=== PATIENT | female | born 1965 | race African-American/Black ===

== ENCOUNTER 2016-06-26 07:00 | Inpatient (IN) | payer OTHER ==
[~2016-06-26] VITALS: Ht 160 cm; Wt 83.0 kg
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
[2016-08-28] MEDS ORDERED: TYLENOL PM EX-1 EACH PO (15:55)
[2016-08-28] MEDS ORDERED: DAFLON PO (15:55)
--- NOTE | 2016-08-29 18:04 | Operative Report ---
Operative/Inv Procedure Report Surgery Date: 08/29/16 Name of Procedure: Cervical anterior discectomy and fusion C4 5 with interdiscal cage fusion and autologous graft with anterior plate C4 5. Harvesting of morselized bone graft right anterior iliac crest. Reconstruction of donor site with Master graft. Use of fluoroscopy. Pre-Operative Diagnosis: Disc herniation C4 5 Post-Operative Diagnosis: Same Estimated Blood Loss: less than 50ml Surgeon/Discharging Machine Operator: LUIS M NUNEZ,STEPHANE IRBY Anesthesia: general endotracheal tube Monitors: Nerve monitor Operative/Procedure Note Note: After adequate general anesthesia was achieved the patient was placed in the supine position with the head turned to the left and the shoulders taped to the side. Right side of the neck and right anterior iliac crest were sterilely prepped and draped. An incision was made in line with the skin crease carried sharply through the platysma. Blunt dissection was carried medial to the neurovascular bundle lateral to the visceral structures and a metallic object was placed in the disc space. Fluoroscopy showed appropriate level of surgery. Deep retractors were gently placed. A sharp venotomy was created and the disc at C4 5 and the discectomy was performed with the disc curettes and rongeurs. An extremely large herniation compressing the exiting C5 nerve root on the left side. There is marked erythematous regions of the nerve root and an hourglass constriction due to the disc compression which was relieved by the decompression. The endplates were decorticated with the high-speed bur and the trials were used to select the appropriate size cage. An incision was made over the right anterior iliac crest a subperiosteal dissection was carried medial and lateral to the crest. The oscillating saw and curet was used to remove a corticocancellous graft. The wound was irrigated Master graft was placed in the defect. A closure of the fascia was performed with absorbable suture with nylon and the skin. The cage was packed with cancellus bone. Was tamped into position and checked by fluoroscopy. An anterior plate was applied was undigested screws were locked and there was excellent purchase in all 4 screws. Construct was checked in AP and lateral plane and found to be appropriate. The wound was checked and hemostasis was achieved. The wound was copiously irrigated and then closed with absorbable suture in the platysma and a subcuticular stitch with nylon. After placement of sterile dressings a cervical collar was applied the patient was taken to the recovery room stretcher.
--- NOTE | 2016-08-29 19:41 | Patient Discharge Instructions ---
Acute Coronary Syndrome Inclusion Criteria At DC or during hospital stay patient has or had the following: ACS DIAGNOSIS No Discharge Core Measures Meds if any: Prescribed or Continued at Discharge Meds if any: NOT Prescribed or Continued at Discharge Congestive Heart Failure Inclusion Criteria At DC or during hospital stay patient has or had the following: CHF DIAGNOSIS No Discharge Core Measures Meds if any: Prescribed or Continued at Discharge Meds if any: NOT Prescribed or Continued at Discharge Cerebrovascular accident Inclusion Criteria At DC or during hospital stay patient has or had the following: CVA/TIA Diagnosis No Discharge Core Measures Meds if any: Prescribed or Continued at Discharge Meds if any: NOT Prescribed or Continued at Discharge Venous thromboembolism Inclusion Criteria VTE Diagnosis No VTE Type NONE VTE Confirmed by (Test) NONE Discharge Core Measures - Per Current guidelines, there needs to be overlap - treatment for the first 5 days of Warfarin therapy. - If discharged on Warfarin prior to 5 days of - overlap therapy, the patient will need to be - assessed for post discharge needs including - *Post discharge parental anticoagulation - *Warfarin and/or parental anticoagulation education - *Follow up date to check INR post discharge At least 5 days overlap therapy as Inpatient No Meds if any: Prescribed or Continued at Discharge Note: Overlap Therapy is Warfarin and Anticoagulant Meds if any: NOT Prescribed or Continued at Discharge
[2016-08-29] MEDS ORDERED: TYLENOL325 M1 PO (19:42)
[2016-08-29] MEDS ORDERED: CALCIUM CARBON500 M2 PO (19:43)
[2016-08-29] MEDS ORDERED: BISAC-EVAC10 M1 PR (19:43)
[2016-08-29] MEDS ORDERED: MILK OF MA400 MG/52 PO (19:44)
[2016-08-29] MEDS ORDERED: VITAMIN D31000 UNI2 PO (19:44)
[2016-08-29] MEDS ORDERED: DOCUSATE SODIU100 M3 PO (19:44)
[2016-08-29] MEDS ORDERED: HYDROMORPHONE HC2 M1 PO (19:45)
[2016-08-29] MEDS ORDERED: ONE DAILY MULT1 EAC2 PO (19:45)
[2016-08-29 20:16] VITALS: BP 122/74
--- NOTE | 2016-08-29 22:29 | PN- Orthopedic ---
Subjective Subjective: Post op check: Patient received on general surgical floor. Is presently without complaints. Denies chest pain, shortness of breath and difficulty breathing. Denies nausea and vomitting. Denies difficulty swallowing. Denies numbness and tingling to bilateral upper extremities. Objective Vital Signs and I&Os Vital Signs Date Time Temp Pulse Resp B/P Pulse O2 O2 Flow FiO2 Ox Delivery Rate 08/29 2015 93 Nasal 2.0L Cannula 08/29 2015 97.2 68 16 122/74 93 Nasal 2.0L Cannula Intake & Output 08/29 0808/29 0000 08/28 0808/28 0000 Intake Total Output Total Balance Patient 183 lb Weight Physical Exam: General: Alert and oriented x3, no acute distress Cardiac: RRR, s1s2 Pulm: CTA bilaterally Abdomen: Non-tender, non-distended Extremities: Moves all extremities, distal sensations intact. Motor 5/5 bilateral upper extremity grasp. Skin warm and well perfused. Bilateral calves soft and non-tender Surgical site: Anterior cervical fusion site, dressing dry and intact. Ice and soft collar in place. ICBG site dressing dry and intact. Assessment/Plan Assessment/Plan This is a 50 year old female, POD 0, s/p ACDF c4-5 for cervical myelopathy. PMH significant for HANNAH and venous insufficiency. -Continue current pain regimen -OOB with PT in am -Diet as tolerated -IV fluids until adequate po -ABX ppx for 24 hours, clindamycin -F/U am labs -Anticipate d/c to home tomorrow Core Measures/Miscellaneous Venous Thromboembolism VTE Risk Factors: Age > 40 VTE Contraindications: No Contraindications VTE Prophylaxis Ordered Inpt: Mech & Pharm VTE Diagnosis: No Beta Chiara Is Beta Chiara a Home Med? No Antibiotics Is Patient on Antibiotics? Yes If Yes: prophylaxis
--- NOTE | 2016-08-29 22:54 | NUR ---
LATE ENTRY: PATIENT ARRIVED TO FLOOR AT 195 FROM PACU, S/P ACD WITH FUSION, C4-C5, WITH R ILIAC CREST VS 97.2 68 16 122/74 93% 2L; NO C/O PAIN OR NAUSEA A&O, LCTA, +BS, INDEPENDENT-AMBULATED TO BATHROOM FROM STRETCHER, VOIDING ON HER OWN. DSG TO ANTERIOR NECK, CDI, WITH SOFT COLLAR IN PLACE WITH ICE PACK. DSG TO R HIP/ILIAC CREST CDI. +CMS, +PEDAL PULSES IV #22 TO LH WITH LR @ 100 ML/HR RUNNING; #20 TO LW HEP LOCKED. ALPS & TEDS STOCKINGS ON. ORIENTED TO ROOM AND CALL MENDEZ. CONTINUE TO MONITOR.
[2016-08-30 00:12] VITALS: BP 138/82
--- NOTE | 2016-08-30 07:49 | NUR ---
Physical therapy: Orders for PT eval and treat received, chart reviewed. Approached patient for PT eval. Patient reports "I've already been up and walking". Patient proceeded to independently get OOB and ambulate out into the hallway without device, independently. Then performed sit to supine independently. No skilled PT required at this time and PT will not be following patient. Thank you.
[2016-08-30 08:44] VITALS: BP 126/68
--- NOTE | 2016-08-30 09:05 | PN- Orthopedic ---
Subjective Subjective: POD #1 s/p ACDF C4-5 with ICBG. Ambulating around room upon interview. Denies further pain to neck or right hip. No complaints, although hungry for breakfast. Denies CP/SOB, N/V, F/C. Objective Vital Signs and I&Os Vital Signs Date Time Temp Pulse Resp B/P Pulse O2 O2 Flow FiO2 Ox Delivery Rate 08/30 0844 98.1 90 18 126/68 93 Nasal 2.0L Cannula 08/30 0012 98.4 83 18 138/82 94 Nasal 2.0L Cannula 08/30 0000 94 Nasal 2.0L Cannula 08/29 2015 93 Nasal 2.0L Cannula 08/29 2015 97.2 68 16 122/74 93 Nasal 2.0L Cannula Intake & Output 08/30 1600 08/30 0800 08/30 0000 08/29 1600 08/29 0800 08/29 0000 Intake Total 850 2740 Output Total 900 800 Balance -50 1940 Intake, IV 800 2500 Intake, Oral 50 240 Output, Urine 900 800 Patient 183 lb Weight Physical Exam: Gen: AAOx3 in NAD HEENT: soft collar removed. Incision to right neck C/D/I. No surrounding soft tissue mass to suggest hematoma. Cor: S1+S2+ Lungs: CTA dale Abd: soft, NT, ND, +BS x4 Ext: no edema or calf tenderness to dale lower extremities. Right hip dressing C /D/I. Upper extremities with palpable radial pulses. Hands warm. Able to lift arms above head. Current Medications: Current Medications Sig/Johan Start time Last Medication Dose Route Stop Time Status Admin Acetaminophen 650 MG Q4P PRN 08/29 1929 AC PO Acetaminophen 1,000 MG .STK-MED ONE 08/29 1444 DC IV 08/29 1445 Bisacodyl 10 MG DAILY NEEDED PRN 08/29 1929 AC GA Calcium 600 MG BID 08/290 AC 08/29 PO 2215 Cholecalciferol 1,000 IU DAILY 08/30 1000 AC PO Clindamycin 600 MG IQ8 08/30 0000 AC 08/30 Dextrose/Water 50 ML IV 08/31 0029 0817 Clindamycin 600 MG ONCE 08/29 0000 DC Dextrose/Water 50 ML IV 08/29 2359 Dexamethasone 8 MG .STK-MED ONE 08/29 1445 DC IM 08/29 1446 Docusate Sodium 100 MG BID 08/29 2199 AC 08/29 PO 2215 Fentanyl Citrate 250 MCG .STK-MED ONE 08/29 1444 DC IM 08/29 1445 Hydromorphone HCl 2 MG Q4P PRN 08/29 194 AC 08/30 PO 0023 Hydromorphone HCl 4 MG Q4 HRS NEEDED PRN 08/29 1944 AC PO Hydromorphone HCl 2 MG .STK-MED ONE 08/29 1443 DC IM 08/29 1444 Lactated Ringer's 1,000 ML Q10H 08/29 194 DC 08/30 IV 0520 Magnesium Hydroxide 30 ML AT BEDTIME PRN 08/29 194 AC PO Midazolam HCl 4 MG .STK-MED ONE 08/29 1444 DC IM 08/29 1445 Morphine Sulfate 2 MG Q3P PRN 08/29 193 AC IV Multivitamins 1 TAB DAILY 08/30 1000 AC PO Ondansetron HCl 4 MG Q6P PRN 08/29 1929 AC IV Scopolamine HBr 1 PAT .STK-MED ONE 08/29 1445 DC TOP 08/29 1446 Trimethobenzamide HCl 200 MG Q6P PRN 08/29 1930 AC IM Assessment/Plan Assessment/Plan A: POD #1 s/p ACDF C4-5 with ICBG; AVSS. Plan: D/C home today. Core Measures/Miscellaneous Venous Thromboembolism VTE Risk Factors: Age > 40 VTE Contraindications: No Contraindications VTE Prophylaxis Ordered Inpt: Mech & Pharm VTE Diagnosis: No Beta Chiara Is Beta Chiara a Home Med? No Antibiotics Is Patient on Antibiotics? Yes If Yes: prophylaxis
--- NOTE | 2016-08-30 09:07 | Surg Short-stay <48hrs Dis Sum ---
Visit Information Visit Dates Admission Date: 08/29/16 Discharge Date: 08/30/16 Surgical Short Stay DC Summary Admission Diagnosis: cervical radiculopathy Final Diagnosis: same Procedure(s): ACDF C4-5 with iliac crest bone graft Summary/Significant Findings: Mrs. Kidd was taken to the OR on 08/29/16 and underwent an ACDF C4-5 with ICBG. She did well intraoperatively, and was transferred to the recovery room in stable condition. She ultimately was transferred to the surgical floor. She tolerated a clear liquid diet overnight and she was able to void spontaneously. Her pain was well controlled. On POD #1, she tolerated a regular diet. She was stable for discharge home with outpatient follow up as scheduled. Condition at Discharge: stable Discharge Disposition: home or self care Discharge instructions provided to patient/family: Yes Post discharge follow-up plan: Dr. Sanchez patient to make appointment per Dr. Sanchez instructions
[2016-08-30] MEDS ORDERED: MELOXICAM15 M1 PO (11:17)
--- NOTE | 2016-08-30 15:28 | RADIOLOGY REPORT ---
EXAMINATION: XR CERVICAL SPINE CLINICAL INFORMATION: Cervical fusion. C4-C5 fusion. COMPARISON: None TECHNIQUE: Imaging assistance was provided in the operating room during a cervical spine procedure. 10 images obtained with the portable image intensifier are submitted. FLUOROSCOPY TIME: 0.1 minutes FINDINGS: Multiple images obtained demonstrate the patient is intubated. Metallic densities project over the ventral mid cervical spine and soft tissues; for localization purposes metallic instruments project at the ventral aspect of the C4-C5 disc. Subsequent images demonstrate findings of discectomy and interbody fusion at C4-C5 with a ventral plate. Detail limited. IMPRESSION: Imaging assistance provided in the operating room during a cervical procedure. Images obtained for localization purposes. Images demonstrate sequential discectomy, interbody fusion and instrumentation at C4-C5.
== END 2016-08-30 12:20 | DRG 473 ==
LOC: ENRESERVDT → ENRESERVTM → SDA 07:00 → ENPENDDIS 08-29 01:24 → SDA 08-29 01:24 → 2NB 08-29 19:56
PROVIDERS: ADMIT Orthopaedic Surgery Orthopaedic Surgery of the Spine
PROC: 0RT30ZZ Resection of Cervical Vertebral Disc, Open Approach (ICD-10-PCS; principal; 2016-08-29)
PROC: 0RG10A0 Fusion of Cervical Vertebral Joint with Interbody Fusion Device, Anterior Approach, Anterior Column, Open Approach (ICD-10-PCS; 2016-08-29)
PROC: 0QB20ZZ Excision of Right Pelvic Bone, Open Approach (ICD-10-PCS; 2016-08-29)
DX: M50.221 Other cervical disc displacement at C4-C5 level (principal)
CPT/HCPCS: 72040; 88304; J0131; J1100; J2405; J3250; J3490; J7120

== ENCOUNTER 2016-12-12 07:00 | Inpatient (IN) | payer OTHER ==
--- NOTE | 2016-12-09 14:35 | History & Physical Pre-Op ---
General Information and HPI MD Statement: I have seen and personally examined SONYA BARRAZA and documented this H&P. The patient is a 51 year old F who presented with a patient stated chief complaint of severe neck pain radiating to right arm. Source of Information: patient, old records Exam Limitations: no limitations History of Present Illness: Sonya is here complaining of severe neck pain radiating to her right arm after her right knee gave way recently and she fell. She experienced whiplash due to the fall. Since Sonya's recent fall, her symptoms have progressively worsened. Her x-rays at the time of the fall showed subsidence of her intradiscal cage, pulling out of the screws at C4, and loosening of the plate. The cage appears to be slightly retropulsed towards the cord. The subadjacent disc space has completely collapsed due to compression from the problem above. Sonya is status post anterior cervical decompression and fusion at C4-5 from August,. She was doing quite well until this incident. Because of Sonya's progressively worsening symptoms and x-ray findings, she is in need for an urgent removal of hardware, decompression and fusion of C4-5 and C5-6 with anterior fixation. Due to the kyphosis and failure of the implant, she also needs a posterior cervical decompression and fusion C4-C6 with wire and autologous bone graft. Sonya understands the risks of surgery as well as watchful waiting and wants nothing more to do with nonsurgical treatment. She has been scheduled for an anterior/ posterior cervical decompression and fusion C4-C6 with instrumentation and iliac crest bone grafting on December 12, 2016. Allergies/Medications Allergies: Coded Allergies: Penicillins (Intermediate, rash 08/20/16) codeine (Intermediate, dizziness 08/20/16) latex (Intermediate, itching 08/20/16) Home Med list Acetaminophen/Diphenhydramine (Tylenol Pm Ex-Strength Caplet) 500 MG-25 MG TABLET SLEEP (Reported) [DAFLON] 500 MG BOTTLE 1 TAB PO BID VENOUS INSUFFICIENCY (Reported) Gabapentin (Neurontin) 300 MG CAPSULE 1 CAP PO TID PAIN (Reported) 1 TAB AM .... 1 TAB NOON.... 2 TABS PM Methocarbamol (Robaxin-750) 750 MG TABLET 2 TAB PO 4X PER DAY SPASM (Reported ) Multivitamin (One Daily Multivitamin) 1 EACH TABLET 1 TAB PO DAILY GENERAL HEALTH Compliance With Home Meds: GOOD Past History Medical History Neurological: NONE EENT: NONE Cardiovascular: NONE Respiratory: obstructive sleep apnea, SOB-unexplained Gastrointestinal: NONE Hepatic: NONE Renal: NONE Musculoskeletal: chronic back pain, disk herniation, degen joint disease, falls, osteoarthritis (right knee), sciatica, spinal stenosis, DDD lumbar Psychiatric: anxiety Endocrine: NONE Blood Disorders: DVT (possible), venous insufficiency Cancer(s): NONE SUPERVISOR CLAIMS/Reproductive: miscarriage, amenorrhea History of MRSA: No History of VRE: No History of CDIFF: No Surgical History Pertinent Surgical History: arthroscopy (right knee 2015), tubal ligation, s/p abdominoplasty 2004 s/p T & A S/p D & C s/p breast reduction 2005 s/p nasal surgery s/p right shoulder arthroscopy 2015, s/p ACDF C4-5 with Instrumentation/ ICBG 08/2016 Past Family/Social History Family History Relations & Conditions if any MOTHER (Diabetes MellitusBreast Cancer). FATHER (OsteoarthritisCancer). . Psychosocial History Where Do You Live? 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 Urinalysis shows bacteria with a WBC of 12.8. IV Cipro given preop and antibiotics to be given postop. Review of Systems Genitourinary: Reports: dysuria. Exam & Diagnostic Data Physical Exam: Weight: 192 lbs. Height: 5'3" Physical Exam General Appearance Alert, Oriented X3, Cooperative, No Acute Distress Skin No Rashes, No Breakdown, No Significant Lesion HEENT Atraumatic, PERRLA, EOMI, Mucous Membr. moist/pink Neck Supple, No JVD, No thryomegaly, +2 Carotid Pulse wo Bruit Lymphatic Cervical nl Cardiovascular Regular Rate, Normal S1, Normal S2, No Murmurs Lungs Clear to Auscultation, Normal Air Movement Abdomen Normal Bowel Sounds, Soft, No Tenderness, No Masses Neurological Normal Tone, Sensation Intact, + right biceps and brachioradialis reflex, weak +4/5 right bicep/tricep strength Extremities No Clubbing, No Cyanosis, No Edema, Normal Pulses Vascular Normal Pulses Last 24 Hrs of Labs/Neil: Laboratory Tests 12/17/16 0959: Urine Test NEGATIVE UA: + bacteria WBC: 12.8 Medication List Current Psychiatric Med(s): Tylenol prn Daflon 500mg daily Neurontin daily Ativan 0.5mg prn anxiety/spasms Assessment/Plan Assessment/Plan: Assessment: 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 Plan: Sonya is scheduled for a revision anterior/posterior cervical decompression/fusion C4-C6 with instrumentation and iliac crest bone grafting on December 12, 2016. We discussed the procedure in full detail as well as the pre-and postoperative course, follow-up care, and anticipated recovery. We also discussed the do's and don'ts and discharge instructions. We discussed the risks, alternatives, and benefits of the surgery versus watchful waiting. The risks discussed did not exclude , infection, paralysis, Bleeding, continued pain, failure of the surgery, need for future surgery, DVT, vascular injury, CSF leak, dysphagia, and hoarseness, etc. Given these risks, she still wishes to proceed. Any changes in this patient's plan is based on this patient's outpatient clinical presentation. As Ranked By This Provider Problem List: 1. Venous insufficiency 2. Osteoarthritis 3. UTI (urinary tract infection) Copies To: LUIS M NUNEZ,STEPHANE Attending MD Review Statement Attending Statement Attending MD Statement: examined this patient, discuss w/resident/PA/OVEN UNLOADER, agreed w/resident/PA/OVEN UNLOADER, reviewed images
[~2016-12-12] VITALS: Ht 160 cm; Wt 87.5 kg
[~2016-12-12 07:00] MED LIST: BISAC-EVAC10 M1 PR; CALCIUM CARBON500 M2 PO; DAFLON PO; DOCUSATE SODIU100 M3 PO; HYDROMORPHONE HC2 M1 PO; MELOXICAM15 M1 PO; MILK OF MA400 MG/52 PO; ONE DAILY MULT1 EAC2 PO; TYLENOL PM EX-1 EACH PO; TYLENOL325 M1 PO; VITAMIN D31000 UNI2 PO
[2016-12-16] MEDS ORDERED: NEURONTIN300 M1 PO (13:54)
[2016-12-16] MEDS ORDERED: ROBAXIN-750750 M1 PO (13:54)
[2016-12-16] MEDS ORDERED: TYLENOL PM EX-1 EACH (13:55)
--- NOTE | 2016-12-17 15:52 | Operative Report ---
Operative/Inv Procedure Report Surgery Date: 12/17/16 Name of Procedure: Anterior cervical inspection of fusion mass. Removal of cervical plate and interdiscal cage C4 5 anterior decompression and fusion C4 5 C5 6 interdiscal plate implantation C4 5 C5 6 with autologous iliac crest bone graft for interbody fusion. Anterior plate fixation C4 5 6 neural lysis right C5 nerve root and C6 nerve root. Harvesting of morselized bone left anterior iliac crest. Reconstruction of iliac crest site with Master graft implant. Use of fluoroscopy. Pre-Operative Diagnosis: Nonunion C4 5 degenerative disc disease C5 6 Post-Operative Diagnosis: Same additional diagnosis loose hardware. Estimated Blood Loss: 50ml to 100ml Surgeon/Silviculture Professor: LUIS M NUNEZ,STEPHANE IRBY Anesthesia: general endotracheal tube Operative/Procedure Note Note: After adequate general anesthesia was achieved the patient was placed in the supine position with the head turned to the left and the shoulders taped to the side. The right side of the neck and left anterior iliac crest were sterilely prepped and draped. The previous incision was excised sharply in the cervical spine and the dissection was carried medial to the neurovascular bundle lateral to the visceral structures. Care was taken throughout the case to avoid any traction on the recurrent laryngeal nerve. Care was also taken to avoid retraction on the esophagus. The deep retractors were gently placed the plate was obviously loose and easily removed all 4 screws were loose. The cage was examined and found to be loose there was a nonunion cage was easily removed. There is severe ball Of scar tissue which was debrided and a decompression was performed neural lysis of the entrapped right C5 nerve root no undue tension was placed in the nerve root in the neural lysis was done under loupe magnification extremely gently. A sharp annulotomy was created and the extremely degenerative subjacent C5 6 disc the high-speed bur was used to debride osteophytes and allow entrance into the disc space. The lamina licensed vocational nurse was used to gently to widen the disc space and restore alignment. The dissection was carried posteriorly through the annulus and posterior longitudinal ligament scar tissue was debrided from the C6 nerve root on the right side performing a neuro lysis extremely gently. The endplates were debrided with the high-speed bur the trials were used to select the appropriate size cages. An incision was made over the left anterior iliac crest and carried medially and laterally to the crest staying on bone and a subperiosteal dissection. The oscillating saw was used to collect cortical cancellus tricortical graft and the cris's were used gently to collect additional cancellus bone. The wound was irrigated Master graft was placed as was Gelfoam and a closure of the fashion subcutaneous tissue was performed with absorbable suture and the skin was closed with nylon. The bone graft was packed within the cages the cages were placed within the disc space well away from the neural canal under fluoroscopic guidance. Cages were checked and found to be very stable with bone graft contacting both endplates at both levels. An anterior plate was then applied. There is reasonable purchase and all 6 screws. The bed of the plate and the body of C3 4 and C6 was slightly countersunk in the region of bone was left superior to the plate at this C34 disc space to avoid irritation of that disc. The construct was checked in AP and lateral plane and found to be appropriate the screws were locked in position. The wound was copiously irrigated the visceral and vascular structures were examined and found to be free of any trauma. The wound was again irrigated and a closure of the platysma was performed with absorbable suture the skin was closed with nylon. After placement of sterile dressings the patient was moved to the stretcher
--- NOTE | 2016-12-17 17:30 | Operative Report ---
Operative/Inv Procedure Report Surgery Date: 12/17/16 Name of Procedure: Posterior cervical inspection of fusion mass laminectomies C4 C5 C6. Lateral autologous bone fusion C4 5 6 bilaterally. Instrumented fusion with 18-gauge wire C4 5 6. Placement of Collier tongs removal of Collier tongs use of fluoroscopy. Pre-Operative Diagnosis: Nonunion C4 5 anterior fusion C4 to C6 Post-Operative Diagnosis: Same Estimated Blood Loss: 50ml to 100ml Surgeon/Financial Services Director: LUIS M NUNEZ,STEPHANE IRBY Anesthesia: general endotracheal tube Operative/Procedure Note Note: While under general anesthesia the Collier tongs were placed with the patient in the supine position. Patient was log rolled onto the operating table in the Collier tongs were affixed to the OR table. The back of the neck was sterilely prepped and draped and incision was made in the midline and carried down bilaterally over the dorsal elements. A metallic optic was placed and fluoroscopy was used to identify surgical surgical level the high-speed bur and curettes were used to create laminectomies at C4 C5-C6. Laminectomies were slightly larger on the right side compared to the left due to the symptoms being on the right side. Corticotomies were created and the spinous processes of C4 through C6. An 18-gauge wire was passed from C4 to C6. The C4 spinous process was diminutive. The wire was therefore placed through the superior most portion of C4. This was done under direct vision. The wire was entirely within cortical bone on both sides of the spinous process. The lateral regions were decorticated with the high-speed bur from C4 to C6. The wound was copiously irrigated. The wire was tightened and trimmed and bent to the midline. The wound was again irrigated the facets were decorticated with the pencil point bur at C4 5 and C5 6 bilaterally. The wound was again irrigated. Bone graft was packed within the treated facet joints and laterally over the decorticated dorsal elements from C4 to C6. Bone graft was covered with Ray-Zhang's the wound was irrigated. Bone graft remained in place. The construct was checked in AP and lateral planes and found to be appropriate in the C4 region was blocked by the shoulders at C5 and C6. The wound was irrigated again with covering the bone graft remained in place. A closure of the fascia was performed with absorbable suture and interrupted and running fashion. The subcutaneous tissue was closed with absorbable suture and the skin was closed with krystin. After placement of sterile dressings the patient was first a cervical collar log rolled on to the with the Collier tongs were removed.
[2016-12-17] MEDS ORDERED: CALCIUM CARBON500 M2 PO (18:56)
[2016-12-17] MEDS ORDERED: TYLENOL325 M1 PO (18:56)
[2016-12-17] MEDS ORDERED: DOCUSATE SODIU100 M3 PO (18:56)
[2016-12-17] MEDS ORDERED: PERCOCET 5-3251 EACH PO (18:56)
[2016-12-17] MEDS ORDERED: MILK OF MA400 MG/52 PO (18:56)
[2016-12-17] MEDS ORDERED: VITAMIN D31000 UNI2 PO (18:56)
[2016-12-17] MEDS ORDERED: SULFAMETHOXAZO1 EAC1 PO (18:56)
[2016-12-17] MEDS ORDERED: BISAC-EVAC10 M1 PR (18:56)
--- NOTE | 2016-12-17 19:08 | RADIOLOGY REPORT ---
EXAMINATION: XR CERVICAL SPINE CLINICAL INFORMATION: Postoperative study. COMPARISON: None TECHNIQUE: Frontal lateral views. FINDINGS: Patient's shoulder positioning limits assessment. The patient is status post anterior cervical discectomy and fusion from the C4-C6 levels with anterior cervical fusion plate in place and intervertebral by screws. Interbody spacers are partially visualized. The majority of the mid to lower cervical spine is obscured. The C1-C4 vertebrae are normally aligned. There is sclerotic facet arthropathy at C2-C3. There are hypoventilatory changes in the lungs. IMPRESSION: Limited study due to obscuration of the mid to lower cervical spine by the patient's shoulders. Status post anterior cervical discectomy and fusion with hardware instrumentation from C4-C6, partially assessed.
[2016-12-17 19:13] LABS: ABSOLUTE BASOPHIL COUNT 0.1 /CUMM (0.0-0.2); ABSOLUTE EOSINOPHIL COUNT 0 /CUMM (0.0-0.7); ABSOLUTE GRANULOCYTE CT 19.3 /CUMM (1.4-6.5); ABSOLUTE LYMPH COUNT 2.7 /CUMM (1.2-3.4); ABSOLUTE MONOCYTE COUNT 0.7 /CUMM (0.10-0.60); BASOPHIL % 0.2 % (0.0-2.0); EOSINOPHIL % 0 % (0-5); MEAN CORPUSCULAR HGB 24.3 PG (27.0-31.0); MEAN CORPUSCULAR HGB CONC 31.2 G/DL (33.0-37.0); MEAN CORPUSCULAR VOLUME 77.9 FL (81.0-99.0); MEAN PLATELET VOLUME 10.7 FL (7.4-10.4); PLATELET COUNT 344 /CUMM (130-400); RBC DISTRIBUTION WIDTH 17.4 % (11.5-14.5); RED BLOOD CELL CT 4.87 /CUMM (4.20-5.40)
[2016-12-17 19:16] LABS: GRANULOCYTE % 84.7 % (42.2-75.2); WHITE BLOOD CELL COUNT 22.8 /CUMM (4.8-10.8)
[2016-12-17 20:30] VITALS: BP 150/80
--- NOTE | 2016-12-17 21:59 | NUR ---
AT APPROX 2030 PATIENT ARRIVED FROM PACU ON STRECTHER TO FLOOR. PATIENT ALERT AND ORIENTED TO ROOM, NURSE AND SURROUNDINGS. PATIENT AT BEDSIDE. VITALS STABLE. NO PAIN REPORTED JUST MILD DISCOMFORT IN NECK AND LEFT HIP. FALL PRECAUTIONS PUT IN PLACE. WILL CONITUE TO MONITOR,
[2016-12-17 22:42] VITALS: BP 126/86
--- NOTE | 2016-12-18 00:12 | PN- Orthopedic ---
Subjective Subjective: POSTOP CHECK sleeping comfortably, did not wake. no issues per RN Objective Vital Signs and I&Os Vital Signs Date Time Temp Pulse Resp B/P B/P Pulse O2 O2 Flow FiO2 Mean Ox Delivery Rate 12/17 2241 97.6 65 20 126/86 97 12/17 2029 Nasal 2.0L Cannula 12/17 2029 97.5 73 20 150/80 94 Nasal 2.0L Cannula Intake & Output 12/18 0000 12/17 1600 12/17 0000 12/16 1600 Intake Total Output Total 275 Balance -275 Output, Urine 275 Patient 193 lb 193 lb Weight Weight Reported by Patient Measurement Method Physical Exam: GEN: NAD sleeping comfortably, did not wake Assessment/Plan Assessment/Plan A: POD0 SP ant and post cervical spine fusion/instrumentation, stable, with UTI present preop. P: prn pain meds regs am labs oob, pt uti- bactrim will dw attending Core Measures/Miscellaneous Venous Thromboembolism VTE Risk Factors: Surgery VTE Contraindications: No Contraindications VTE Diagnosis: No Beta Chiara Is Beta Chiara a Home Med? No Antibiotics Is Patient on Antibiotics? Yes
[2016-12-18 07:41] VITALS: BP 150/88
[2016-12-18 09:12] LABS: ABSOLUTE BASOPHIL COUNT 0 /CUMM (0.0-0.2); ABSOLUTE EOSINOPHIL COUNT 0 /CUMM (0.0-0.7); ABSOLUTE GRANULOCYTE CT 18.1 /CUMM (1.4-6.5); ABSOLUTE LYMPH COUNT 1.1 /CUMM (1.2-3.4); ABSOLUTE MONOCYTE COUNT 1.4 /CUMM (0.10-0.60); BASOPHIL % 0 % (0.0-2.0); EOSINOPHIL % 0 % (0-5); HEMATOCRIT 37.3 % (37-47); MEAN CORPUSCULAR HGB 24.4 PG (27.0-31.0); MEAN CORPUSCULAR HGB CONC 31.4 G/DL (33.0-37.0); MEAN CORPUSCULAR VOLUME 77.6 FL (81.0-99.0); MEAN PLATELET VOLUME 12.1 FL (7.4-10.4); PLATELET COUNT 321 /CUMM (130-400); RBC DISTRIBUTION WIDTH 17.8 % (11.5-14.5)
--- NOTE | 2016-12-18 09:32 | RADIOLOGY REPORT ---
EXAMINATION: XR CERVICAL SPINE CLINICAL INFORMATION: Hardware removal and reversal of anterior cervical discectomy at C4-C6. Posterior cervical laminectomy performed in operating room. COMPARISON: Cervical spine images, 08/29/2016. TECHNIQUE: Intraoperative C-arm fluoroscopic imaging of the cervical spine was utilized by Dr. Sanchez. 4 spot fluoroscopy images are submitted into the electronic picture archive. Fluoroscopy time: 0.3 minutes. Dose: 3.28 mGy. FINDINGS: Initial lateral fluoroscopic image of the cervical spine shows surgical changes of discectomy-fusion at C4-C5. Patient is intubated within the operating room. Subsequent fluoroscopic images show the patient has undergone discectomy and anterior fusion at C4-C6. The intervertebral spacer/graft, anterior fusion plate and screws are in their expected positions. The visualized cervical vertebra have anatomic alignment. IMPRESSION: Fluoroscopic imaging assistance provided to operating room for cervical discectomy and fusion at C4 C6. Please refer to the operative report.
[2016-12-18 10:18] LABS: WHITE BLOOD CELL COUNT 20.6 /CUMM (4.8-10.8)
--- NOTE | 2016-12-18 10:54 | NUR ---
PHYSICAL THERAPY- CONSULT RECEIVED, CHART REVIEWED. ATTEMPTED TO SEE PT FOR EVAL, BUT PT PLEASANTLY REFUSED 2* POSTERIOR NECK PAIN. PT JUST AMB BACK FROM BATHROOM AND INDEPENDENTLY RETURNED SELF TO BED AND REPOSITIONED SELF. PER NSG, PT WAS UP AND AMB INTO BATHROOM x2 THIS AM W/O MUCH DIFFICULTY. WILL FOLLOW APPROPRIATE.
[2016-12-18 14:47] VITALS: BP 130/80
--- NOTE | 2016-12-18 16:25 | Surg Short-stay <48hrs Dis Sum ---
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 UTI Final Diagnosis: Same, s/p surgery - see operative report Procedure(s): Revision anterior/posterior cervical decompression/fusion C4-C6 with instrumentation and iliac crest bone grafting Summary/Significant Findings: See operative report Ms Kidd underwent surgery on December 17. She tolerated the procedure well and was brought to the PACU in stable condition. She progressed well postoperatively, her pain was well controlled and she was deemed stable for discharge home. Condition at Discharge: good Discharge Disposition: home or self care Discharge instructions provided to patient/family: Yes Post discharge follow-up plan: Follow up instructions given by Dr Dukes office
--- NOTE | 2016-12-18 16:27 | PN- Orthopedic ---
Subjective Subjective: Patient c/o expected postop incisional pain. No preop symptoms. + post. cervical spasms. No dysphagia, sorethroat. Geovany. po Tylenol/Benadryl. No fever/ chills. No urinary symptoms. Geovany. po. No N/V. Ambulating with PT. Voiding without difficulty. + flatus. Review of Systems: Remarkable for the above complaints. Objective Vital Signs and I&Os Vital Signs Date Time Temp Pulse Resp B/P B/P Pulse O2 O2 Flow FiO2 Mean Ox Delivery Rate 12/18 1447 99.9 100 20 130/80 97 Room Air 12/18 0940 Room Air 12/18 0741 97.1 78 20 150/88 96 Nasal 2.0L Cannula 12/18 0000 Nasal 2.0L Cannula 12/17 2242 97.6 65 20 126/86 97 12/17 2030 Nasal 2.0L Cannula 12/17 2029 97.5 73 20 150/80 94 Nasal 2.0L Cannula Intake & Output 12/18 1600 12/18 0800 08 0000 12/17 1600 12/17 0800 12/17 0000 Intake Total 440 Output Total 600 1000 600 Balance -600 -1000 -160 Intake, IV 200 Intake, Oral 240 Output, Urine 600 1000 600 Patient 193 lb Weight Weight Reported by Patient Measurement Method Physical Exam General Appearance: well developed/nourished, alert, awake, mild distress Head: atraumatic, normal appearance Respiratory: normal breath sounds, no respiratory distress Cardiovascular: regular rate/rhythm Abdomen: normal bowel sounds, soft, non-tender Back: Neck/graft incisons C/D/I. Dressings changed. Extremities: normal inspection, normal capillary refill Neurologic/Psychiatric: awake, alert, oriented x 3, Neurovascularly intact with no new or worsening gross motor or sensory loss. Skin: intact, normal color, warm/dry Assessment/Plan Assessment/Plan Assessment: S/p Rev. ACDF/PCDF C4-C6 with Instr./ICBG. Plan: Continue Percocet, Tylenol, Benadryl. Ambulate with PT. HLIV. Ice prn pain. Do's/Dont's explained. Disch. Instr. given. Will recheck CBC in am. Possible D/C home tomorrow. Problem List: 1. Venous insufficiency 2. Osteoarthritis 3. UTI (urinary tract infection) Core Measures/Miscellaneous Venous Thromboembolism VTE Risk Factors: Surgery VTE Contraindications: No Contraindications VTE Diagnosis: No Beta Chiara Is Beta Chiara a Home Med? No Antibiotics Is Patient on Antibiotics? Yes Attending MD Review Statement Attending Statement Attending MD Statement: examined this patient, discuss w/resident/PA/DJANGO DEVELOPER, agreed w/resident/PA/DJANGO DEVELOPER
[2016-12-18 21:42] VITALS: BP 140/82
--- NOTE | 2016-12-19 00:18 | NUR ---
ALERT AND ORIENTED X 3. ON ROOM AIR. DENIES SHORTNESS OF BREATH. LUNGS CLEAR SURGICAL MD AWARE OF 116 HR AND 100.3 TEMP. NO NEW ORDERS AT THIS TIME RLE TINGLING AT BASELINE. DSGS TO NECK AND L HIP ARE C/D/I MEDICATION GIVEN FOR PAIN.
[2016-12-19 06:20] VITALS: BP 136/80
[2016-12-19 08:29] LABS: ABSOLUTE BASOPHIL COUNT 0 /CUMM (0.0-0.2); ABSOLUTE EOSINOPHIL COUNT 0 /CUMM (0.0-0.7); ABSOLUTE GRANULOCYTE CT 13.2 /CUMM (1.4-6.5); ABSOLUTE LYMPH COUNT 2.9 /CUMM (1.2-3.4); ABSOLUTE MONOCYTE COUNT 2.3 /CUMM (0.10-0.60); BASOPHIL % 0.1 % (0.0-2.0); EOSINOPHIL % 0 % (0-5); GRANULOCYTE % 71.6 % (42.2-75.2); HEMATOCRIT 32.7 % (37-47); MEAN CORPUSCULAR HGB 24.7 PG (27.0-31.0); MEAN CORPUSCULAR HGB CONC 31.6 G/DL (33.0-37.0); MEAN CORPUSCULAR VOLUME 78.1 FL (81.0-99.0); MEAN PLATELET VOLUME 11.7 FL (7.4-10.4); PLATELET COUNT 282 /CUMM (130-400); RBC DISTRIBUTION WIDTH 17.8 % (11.5-14.5); RED BLOOD CELL CT 4.19 /CUMM (4.20-5.40); WHITE BLOOD CELL COUNT 18.4 /CUMM (4.8-10.8)
--- NOTE | 2016-12-19 14:35 | PN- Orthopedic ---
Subjective Subjective: Patient is complaining of expected post operative pain. She does admit to some right arm tingling which is unchanged. She denies any fever or chills nor any urinary symptoms. She also denies any chest pain or shortness of breath. Denies any nausea or vomiting. She is tolerating a regular diet. He is voiding without difficulty and has had a normal bowel movement. She is tolerating Tylenol as needed for pain. She has ambulated without assistance. She states her pain is manageable with the by mouth Tylenol and Benadryl. She has had low- grade temps throughout her hospital stay but her white blood cell count has been trending downward. Review of Systems: Positive low-grade temp. Her remaining review of systems is remarkable for the above complaints. Objective Vital Signs and I&Os Vital Signs Date Time Temp Pulse Resp B/P B/P Pulse O2 O2 Flow FiO2 Mean Ox Delivery Rate 12/20 619 99.4 105 20 136/80 93 Room Air 12/18 2142 100.3 116 20 140/82 91 12/18 1447 99.9 100 20 130/80 97 Room Air Intake & Output 12/19 1600 09 0800 /09 0000 /08 1600 / 0800 /08 0000 Intake Total 240 100 440 Output Total 948 314 6113 600 Balance 40 -600 -1000 -160 Intake, IV 200 Intake, Oral 240 100 240 Number 0 Bowel Movements Output, Urine 672 782 0407 600 Patient 193 lb Weight Weight Reported by Patient Measurement Method Physical Exam General Appearance: well developed/nourished, alert, awake, mild distress Head: atraumatic, normal appearance Neck: Incisions C/D/I. Dressings dry. Respiratory: normal breath sounds, no respiratory distress Cardiovascular: regular rate/rhythm, tachycardia (110) Abdomen: normal bowel sounds, soft, non-tender Neurologic/Psychiatric: Neurovascularly unchanged and stable with no new or worsening gross motor or sensory loss. Skin: intact, normal color, warm/dry Assessment/Plan Assessment/Plan Assessment: Sonya is status post revision anterior/posterior cervical decompression fusion C4 through C6 with instrumentation, cages, and iliac crest bone grafting on 12/17/2016. Plan: Sonya has been given a dose of Tylenol for a low-grade temp and slight tachycardia. If she responds well to the Tylenol, she is deemed stable for discharge home on by mouth Bactrim for her UTI. We discussed the do's and don' ts and postoperative expectations. Discharge instructions were given. She will follow up as an outpatient. She'll continue with by mouth Tylenol and Benadryl as needed for pain. She has been advised to call with any new or worsening symptoms or any fever or chills. Problem List: 1. UTI (urinary tract infection) 2. Osteoarthritis 3. Venous insufficiency Core Measures/Miscellaneous Venous Thromboembolism VTE Risk Factors: Surgery VTE Contraindications: No Contraindications VTE Diagnosis: No Beta Chiara Is Beta Chiara a Home Med? No Antibiotics Is Patient on Antibiotics? Yes Attending MD Review Statement Attending Statement Attending MD Statement: examined this patient, discuss w/resident/PA/ROLLER STRUCTURAL MILL, agreed w/resident/PA/ROLLER STRUCTURAL MILL
[2016-12-19 14:39] VITALS: BP 158/98
[2016-12-19 15:49] VITALS: BP 142/71
== END 2016-12-19 16:45 | DRG 473 ==
LOC: DELPENDDIS → SDA 12-17 02:44 → ENRESERV 12-17 17:44 → ENTRNSPT 12-17 20:00 → 2NB 12-17 20:20 → CMPTRNSPT 12-18 07:08 → ENPENDDIS 12-18 07:37 → CMPTRNSPT 12-18 10:40 → ENPENDDIS 12-19 13:36 → 2NB 12-19 16:45
PROVIDERS: Orthopaedic Surgery Orthopaedic Surgery of the Spine; ADMIT Orthopaedic Surgery Orthopaedic Surgery of the Spine
PROC: 0RG2070 Fusion of 2 or more Cervical Vertebral Joints with Autologous Tissue Substitute, Anterior Approach, Anterior Column, Open Approach (ICD-10-PCS; principal; 2016-12-17)
PROC: 0QB30ZZ Excision of Left Pelvic Bone, Open Approach (ICD-10-PCS; principal; 2016-12-17)
PROC: 0RP10AZ Removal of Interbody Fusion Device from Cervical Vertebral Joint, Open Approach (ICD-10-PCS; principal; 2016-12-17)
DX: M96.0 Pseudarthrosis after fusion or arthrodesis (principal); Y83.8 Other surgical procedures as the cause of abnormal reaction of the patient, or of later complication, without mention of misadventure at the time of the procedure
CPT/HCPCS: 2NBSP; 36415; 72040; 81025; 87086; 97116-GO; C9399; J0131; J0744; J1100; J2405; J3250; J3490; J7120

== ENCOUNTER 2017-12-03 07:00 | Inpatient (IN) | payer OTHER ==
--- NOTE | 2017-11-25 13:13 | History & Physical Pre-Op ---
General Information and [facility] MD Statement: I have seen and personally examined SONYA BARRAZA and documented this H&P. The patient is a 52 year old F who presented with a patient stated chief complaint of upper/lower thoracic and intrascapular thoracic pain. Source of Information: patient, old records Exam Limitations: no limitations History of Present Illness: Sonya is a 52-year-old female who has been complaining of progressively worsening and severe upper and lower thoracic spine pain as well as intrascapular thoracic pain. She is status post anterior/posterior cervical decompression and fusion from 12/2016. She does admit to pain that radiates down into her lower lumbar spine and down into her legs bilaterally, left leg greater than right. She also complains of neck pain radiating to bilateral upper extremities, right side greater than left with associated numbness and tingling in her fingers. She does report weakness in her right arm and right leg. She also admits to experiencing constipation which is fairly new. She continues to take Neurontin 300 mg 8 tablets a day to keep her symptoms to a manageable level. She states her pain is a 10/10 in intensity. She is unable to sit or lay down on her back for any prolonged periods of time without experiencing significant pain. Her MRI scan of the thoracic spine shows degenerative disc disease with osteophytic spurring with disc herniations and ligamentum flavum hypertrophy which impinge upon the spinal cord, more predominantly at T3-4, T4-5, and T5-6. Due to the fact that Sonya has failed to respond to conservative measures and has progressively worsening thoracic spine pain, she has been consented for a posterior thoracic decompression and fusion with instrumentation and iliac crest bone grafting T2-T6 on 12/04/2017. Allergies/Medications Allergies: Coded Allergies: Penicillins (Intermediate, rash 12/04/17) codeine (Intermediate, dizziness 12/04/17) latex (Intermediate, itching 12/04/17) Home Med list Acetaminophen (Tylenol) 325 MG TABLET 650 MG PO Q4P PRN TEMP > 101.5 Gabapentin (Neurontin) 300 MG CAPSULE 1 CAP PO TID PAIN (Reported) 1 TAB AM .... 1 TAB NOON.... 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 ACDF/PCDF C4-6 with Instr/ICBG 12/2016 Past Family/Social History Family History Relations & Conditions if any MOTHER (Diabetes MellitusBreast Cancer). FATHER (OsteoarthritisCancer). . Psychosocial History Where Do You Live? 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 Exam & Diagnostic Data Last 24 Hrs of Vital Signs/I&O Weight: 192 lbs. Height: 5'3" Physical Exam General Appearance Alert, Oriented X3, Cooperative, Mild Distress Skin No Rashes, No Breakdown, No Significant Lesion HEENT Atraumatic, PERRLA, EOMI, Mucous Membr. moist/pink Neck Supple, No JVD, No thryomegaly, +2 Carotid Pulse wo Bruit Lymphatic Cervical nl Cardiovascular Regular Rate, Normal S1, Normal S2, No Murmurs Lungs Clear to Auscultation Abdomen Normal Bowel Sounds, Soft, No Tenderness Neurological Normal Gait, Normal Speech, Normal Tone, Sensation Intact, Reflexes 2+, weak +4/5 right EHL/ant. tib Extremities No Clubbing, No Cyanosis, No Edema, Normal Pulses Vascular Normal Pulses Medication List Current Psychiatric Med(s): Neurontin 300mg 2 at 6am, 2 at 11am, 2 at 4pm, 2 at 10pm Daflon 500mg 1 po BID-stopped x 2 weeks Lorazepam 1mg 2 tabs po q hs MVI 1 daily Percocet 5/325 prn pain Assessment/Plan Assessment/Plan: Assessment: T2-3, T3-4, T4-5, and T5-6 degenerative disc disease, ligamentum flavum hypertrophy, osteophytic spurring, and disc herniations causing cord compression. Plan: Sonya is scheduled for a posterior thoracic decompression fusion with instrumentation and iliac crest bone grafting T2-T6 on 12/04/2017. We discussed the procedure in full detail as well as the preoperative and postoperative course, follow-up care, and anticipated recovery. We also discussed the do's and don'ts and postoperative discharge instructions. We discussed the benefits, alternatives, and risks, not to exclude, , paralysis, infection, bleeding, continued pain, failure of the surgery, need for future surgery, DVT, vascular injury, CSF leak, etc., and given these risks, she still wishes to proceed. We will consider getting a neurology consult while she is here at [facility] as well as an MRI of the lumbar spine to rule out disc herniation/stenosis. She is scheduled to see her primary care physician, Dr. Hodge, for preoperative clearance. Any changes in this patient's plan is based on this patient's outpatient clinical presentation. As Ranked By This Provider Problem List: 1. Venous insufficiency 2. Osteoarthritis Copies To: Daniel NUNEZ,Deandre Attending MD Review Statement Attending Statement Attending MD Statement: examined this patient, discuss w/resident/PA/FINANCIAL COMPLIANCE EXAMINER, agreed w/resident/PA/FINANCIAL COMPLIANCE EXAMINER, reviewed images
[~2017-12-03] VITALS: Ht 160 cm; Wt 84.8 kg
[~2017-12-03 07:00] MED LIST changes: +NEURONTIN300 M1 PO; +PERCOCET 5-3251 EACH PO; +ROBAXIN-750750 M1 PO; +SULFAMETHOXAZO1 EAC1 PO; +TYLENOL PM EX-1 EACH
[2017-12-04] MEDS ORDERED: ATIVAN0.5 M1 (07:17)
--- NOTE | 2017-12-04 11:26 | Event Note ---
Event Note Event Note: Dr. Sanchez discussed the risk of keloiding of Sonya's incisions after surgery given her past history of keloiding in the past. We discussed the use of absorbable sutures and the attempt to reduce the formation of a keloid after surgery but that the risk remains. Sonya was made aware of this and was agreeable to surgery given the risks. We discussed that she may require further surgery by a plastic surgeon in the future to repair and remove any keloids that may form. She understood the risk and consented for the surgery.
--- NOTE | 2017-12-04 14:14 | Operative Report ---
Operative/Inv Procedure Report Surgery Date: 12/04/17 Name of Procedure: Posterior thoracic laminectomies T5 and T6 discectomy T5 6 instrumented fusion T5 6. Harvesting of morselized bone graft right posterior iliac crest. Reconstruction of graft site with Master graft. Lateral fusion morselized autologous iliac crest T5 6. Use of fluoroscopy. Pre-Operative Diagnosis: Herniated thoracic disc T5 T6 and osteoporosis Post-Operative Diagnosis: Same Estimated Blood Loss: 200cc Surgeon/Early Childhood Services Coordinator: Daniel NUNEZ,Deandre IRBY Anesthesia: general endotracheal tube Operative/Procedure Note Note: After adequate general anesthesia was achieved the patient was placed in the prone position. The thoracic spine and right posterior iliac crest were sterilely prepped and draped and incision was made in the midline carried out over the dorsal elements in the upper thoracic spine. Fluoroscopy was used to identify surgical level using a towel clip on the spinous process of T5. The cris bur and cutting bur were used to create laminectomies at T5 and T6 on the left side. The curettes and Kerrisons were used to perform laminectomies decompressing the spinal cord and nerve root. The bone was found to be severely osteoporotic. A sharp annulotomy was created in the disc and the micro- instruments were used to perform a discectomy. The micro-instruments were used to reduce the herniation which was collected from within the disc space. Bone and disc material from the eye 6 disc space was sent to pathology. Fluoroscopy was used to identify surgical level with the micro-[place]ar[place] within the disc space. After placement of the instrumentation using towel clips and the spinous process of T5 and T6. The facet joint was partially removed on the left side approximately 60% of the joint throughout the remainder on the left and the entire joint on the right were perforated with a pencil point bur. 18-gauge wires were passed through the spinous process corticotomies at T5 and T6 wires were twisted tight with no over compression. There was no evidence of loosening and the wires given the osteoporosis. The wires were cut and bent to the midline carefully placed against the spinous processes away from the musculature. An incision was made over the right posterior iliac crest and a subperiosteal dissection was carried lateral to the crest. The osteotome and curettes were used to collect morcellized bone graft. The wound was irrigated packed with Master graft in the harvest graft site of the iliac crest. Gelfoam was laid over the site the wound was irrigated and closed in layers with absorbable suture was nylon in the skin. The bone graft was placed laterally over the lateral elements from T5 to 6 T6. Prior to placement of the bone graft wound was copiously irrigated the bone graft was placed and a closure was performed of the fascial with absorbable interrupted and running suture as was subcutaneous tissue the skin was closed with subcuticular nylon. Prior to closure last the showed appropriate position. After closure sterile dressings were applied and the patient was transferred to the stretcher. Additional decision was made during the surgery given the severe osteoporosis and extremely high risk of sedation failure resulting in need for future surgery to limit the surgery at 1 level avoid a long fusion with high risk of nonunion and loose hardware and limit the implants to the surgical heart were used. Findings: Severe osteoporosis large disc herniation
[2017-12-04 15:55] LABS: ABSOLUTE BASOPHIL COUNT 0 /CUMM (0.0-0.2); ABSOLUTE EOSINOPHIL COUNT 0 /CUMM (0.0-0.7); ABSOLUTE GRANULOCYTE CT 15.1 /CUMM (1.4-6.5); ABSOLUTE LYMPH COUNT 1.8 /CUMM (1.2-3.4); ABSOLUTE MONOCYTE COUNT 0.6 /CUMM (0.10-0.60); BASOPHIL % 0 % (0.0-2.0); EOSINOPHIL % 0.1 % (0-5); MEAN CORPUSCULAR HGB 26.3 PG (27.0-31.0); MEAN CORPUSCULAR HGB CONC 32.3 G/DL (33.0-37.0); MEAN CORPUSCULAR VOLUME 81.5 FL (81.0-99.0); MEAN PLATELET VOLUME 10.1 FL (7.4-10.4); PLATELET COUNT 317 /CUMM (130-400); RBC DISTRIBUTION WIDTH 17.4 % (11.5-14.5); RED BLOOD CELL CT 4.29 /CUMM (4.20-5.40); WHITE BLOOD CELL COUNT 17.5 /CUMM (4.8-10.8)
--- NOTE | 2017-12-04 15:59 | Patient Discharge Instructions ---
Discharge Instructions General Discharge Information You were seen/treated for: Herniated thoracic disc T5 T6 and osteoporosis You had these procedures: Posterior thoracic laminectomies T5 and T6 discectomy T5 6 instrumented fusion T5 6. Harvesting of morselized bone graft right posterior iliac crest. Reconstruction of graft site with Master graft. Lateral fusion morselized autologous iliac crest T5 6. Use of fluoroscopy on 12/04/17 No bath, but you may shower: Yes Special Instructions: Follow up with Dr. Benitez for an outpatient EMG nerve conduction study on at 8 am Diet Continue normal diet: Yes Activity Full Activity/No Limits: No Activity Self Limited: Yes Activity Limited to: Weight bear as tolerated Acute Coronary Syndrome Inclusion Criteria At DC or during hospital stay patient has or had the following: ACS DIAGNOSIS No Discharge Core Measures Meds if any: Prescribed or Continued at Discharge Meds if any: NOT Prescribed or Continued at Discharge Congestive Heart Failure Inclusion Criteria At DC or during hospital stay patient has or had the following: CHF DIAGNOSIS No Discharge Core Measures Meds if any: Prescribed or Continued at Discharge Meds if any: NOT Prescribed or Continued at Discharge Cerebrovascular accident Inclusion Criteria At DC or during hospital stay patient has or had the following: CVA/TIA Diagnosis No Discharge Core Measures Meds if any: Prescribed or Continued at Discharge Meds if any: NOT Prescribed or Continued at Discharge Venous thromboembolism Inclusion Criteria VTE Diagnosis No VTE Type NONE VTE Confirmed by (Test) NONE Discharge Core Measures - Per Current guidelines, there needs to be overlap - treatment for the first 5 days of Warfarin therapy. - If discharged on Warfarin prior to 5 days of - overlap therapy, the patient will need to be - assessed for post discharge needs including - *Post discharge parental anticoagulation - *Warfarin and/or parental anticoagulation education - *Follow up date to check INR post discharge At least 5 days overlap therapy as Inpatient No Meds if any: Prescribed or Continued at Discharge Note: Overlap Therapy is Warfarin and Anticoagulant Meds if any: NOT Prescribed or Continued at Discharge
[2017-12-04] MEDS ORDERED: MILK OF MA400 MG/52 PO (16:05)
[2017-12-04] MEDS ORDERED: OS-CAL 500+D31 EAC1 PO (16:05)
[2017-12-04] MEDS ORDERED: TYLENOL EXTRA500 M2 PO (16:05)
[2017-12-04] MEDS ORDERED: MULTIVITAMINS1 EAC9 PO (16:05)
[2017-12-04] MEDS ORDERED: COLACE100 M1 PO (16:05)
[2017-12-04] MEDS ORDERED: ATIVAN0.5 M1 PO (16:05)
[2017-12-04] MEDS ORDERED: VITAMIN D31000 UNI2 PO (16:05)
[2017-12-04] MEDS ORDERED: PERCOCET 5-3251 EACH PO (16:05)
[2017-12-04] MEDS ORDERED: GABAPENTIN300 M2 PO (16:05)
[2017-12-04] MEDS ORDERED: DULCOLAX10 M1 RC (16:05)
--- NOTE | 2017-12-04 16:12 | RADIOLOGY REPORT ---
EXAMINATION: CR THORACIC SPINE/INTRAOPERATIVE FLUOROSCOPY CLINICAL INDICATION: T2-T6 fusion laminectomy. COMPARISON: None TECHNIQUE/FINDINGS: Fluoroscopic equipment was dedicated to the operating room for the performance of an intraoperative procedure. Several (5) spot films were acquired and are archived in PACS. Please refer to operative notes for procedural detail. FLUOROSCOPY TIME: 0.8 minutes. IMPRESSION: Administrative dictation for intraoperative fluoroscopy and image archiving in PACS. Please refer to operative notes for details.
[2017-12-04 16:35] LABS: GRANULOCYTE % 86.2 % (42.2-75.2)
[2017-12-04 16:40] VITALS: BP 120/60
--- NOTE | 2017-12-04 17:20 | PN- Orthopedic ---
Subjective Subjective: Patient lying in bed, family present. Pain controlled, tolarating POs with slow progression zhu out, IVF to continue Objective Vital Signs and I&Os Intake & Output 12/04 1600 12/04 0812/04 0000 12/03 0812/03 0000 Intake Total Output Total Balance Patient 187 lb Weight VSS - done in the floor Physical Exam: Alert and oriented, tired, pain controlled heart - RRR without MRG chest - CTA symmetric abdom -soft without distention thoracic spine -dressing dry and intact bilateral lower extremities - no weakness or numbness ALPs in place Assessment/Plan Assessment/Plan 52 y/o female S/P posterior thoracic decompression and fusion with instrumentation and iliac crest bone grafting T2-T6 OOB to chair -PT to see patient zhu out, IVF -D/C tomorrow when fully taking POs LR 100/hr postop nausea - controlled DVT proph - Alps Admission Lab Results I reviewed the following labs: Laboratory Tests 12/04 1540 Hematology CBC w Diff NO MAN DIFF REQ WBC (4.8 - 10.8 /CUMM) 17.5 H RBC (4.20 - 5.40 /CUMM) 4.29 Hgb (12.0 - 16.0 G/DL) 11.3 L Hct (37 - 47 %) 35.0 L MCV (81.0 - 99.0 FL) 81.5 MCH (27.0 - 31.0 PG) 26.3 L MCHC (33.0 - 37.0 G/DL) 32.3 L RDW (11.5 - 14.5 %) 17.4 H Plt Count (130 - 400 /CUMM) 317 MPV (7.4 - 10.4 FL) 10.1 Gran % (42.2 - 75.2 %) 86.2 H Lymphocytes % (20.5 - 51.1 %) 10.1 L Monocytes % (1.7 - 9.3 %) 3.6 Eosinophils % (0 - 5 %) 0.1 Basophils % (0.0 - 2.0 %) 0 Absolute Granulocytes (1.4 - 6.5 /CUMM) 15.1 H Absolute Lymphocytes (1.2 - 3.4 /CUMM) 1.8 Absolute Monocytes (0.10 - 0.60 /CUMM) 0.6 Absolute Eosinophils (0.0 - 0.7 /CUMM) 0 Absolute Basophils (0.0 - 0.2 /CUMM) 0 Admission Meds I reviewed the following Meds: Current Medications Sig/Johan Start time Last Medication Dose Stop Time Status Admin Acetaminophen 650 MG Q4P PRN 12/04 1545 AC (Tylenol) Bisacodyl 10 MG DAILY NEEDED PRN 12/04 1545 AC (Dulcolax Supp) Calcium 600 MG BID 12/04 2100 AC (Calcium Carbonate 600 MG Tab) Cholecalciferol 1,000 IU DAILY 12/05 0900 AC (Vitamin D) Clindamycin 600 MG IQ8 12/04 1600 AC (Cleocin) 12/05 0829 Dextrose/Water 50 ML (D5W) Clindamycin 600 MG ONCE 12/04 0000 NR (Cleocin) 12/04 2359 Docusate Sodium 100 MG TID 12/04 2100 AC (Colace) Gabapentin 600 MG Q6 12/04 1800 AC (Neurontin) Hydromorphone HCl 0.4 MG Q4P PRN 12/04 1600 AC (Dilaudid) Lactated Ringer's 1,000 ML Q10H 12/04 1600 AC (Lactated Ringers) Lorazepam 0.5 MG AT BEDTIME PRN 12/04 1600 AC (Ativan) 12/11 1559 Magnesium Hydroxide 30 ML Q8P PRN 12/04 1600 AC (Milk Of Magnesia) Multivitamins 1 TAB DAILY 12/05 0900 AC (Theragran Vitamins) Ondansetron HCl 4 MG Q6P PRN 12/04 1545 AC (Zofran) Oxycodone/ 1 TAB Q4P PRN 12/04 1545 AC Acetaminophen (Percocet) Oxycodone/ 2 TAB Q4P PRN 12/04 1545 AC Acetaminophen (Percocet) Trimethobenzamide HCl 200 MG Q6P PRN 12/04 1545 AC (Tigan) Core Measures Venous Thromboembolism VTE Risk Factors Surgery No Mechanical VTE Prophylaxis d/t Other No VTE Pharm Prophylaxis d/t Surgical Contraindication
[2017-12-04 21:16] VITALS: BP 140/80
[2017-12-05 06:43] VITALS: BP 139/81
--- NOTE | 2017-12-05 09:17 | Surg Short-stay <48hrs Dis Sum ---
Visit Information Visit Dates Admission Date: 12/04/17 Discharge Date: 12/05/17 Surgical Short Stay DC Summary Admission Diagnosis: Herniated thoracic disc T5 T6 and osteoporosis Final Diagnosis: Same s/p Posterior thoracic laminectomies T5 and T6 discectomy T5 6 instrumented fusion T5 6. Harvesting of morselized bone graft right posterior iliac crest. Reconstruction of graft site with Master graft. Lateral fusion morselized autologous iliac crest T5 6. Use of fluoroscopy. Procedure(s): Posterior thoracic laminectomies T5 and T6 discectomy T5 6 instrumented fusion T5 6. Harvesting of morselized bone graft right posterior iliac crest. Reconstruction of graft site with Master graft. Lateral fusion morselized autologous iliac crest T5 6. Use of fluoroscopy on 12/04/17 Summary/Significant Findings: Patient admitted for an elective posterior thoracic decompression and fusion with instrumentation and iliac crest bone grafting T2-T6 without complications. Procedure was tolerated well and patient was transferred to a general surgical floor. Diet was advanced and tolerated. Physical therapy performed evaluation and treatment. Dr. Parsons, from neurology was consulted for radiculopathy and diffuse neuropathic pain, for which he recommended an outpatient EMG nerve conduction study on the left leg possibly right arm on Thursday morning at 8 AM. Patient is medically stable for discharge at this time. Remainder of hospital course was uneventful. Condition at Discharge: Stable Discharge Disposition: home or self care Discharge instructions provided to patient/family: Yes Post discharge follow-up plan: Call to schedule follow up with Dr. Sanchez
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
== END 2017-12-05 14:48 | DRG 460 ==
LOC: SDA 12-04 01:15 → ENRESERV 12-04 15:22 → ENTRNSPT 12-04 16:01 → EDTRNSPTSTS 12-04 16:29 → 2NB 12-04 16:36 → CMPTRNSPT 12-04 16:41 → ENPENDDIS 12-05 12:01 → ENTRNSPT 12-05 14:22 → EDTRNSPT 12-05 14:25 → EDTRNSPTSTS 12-05 14:25 → 2NB 12-05 14:48 → CMPTRNSPT 12-05 14:52
PROVIDERS: Orthopaedic Surgery Orthopaedic Surgery of the Spine
PROC: 0RG6071 Fusion of Thoracic Vertebral Joint with Autologous Tissue Substitute, Posterior Approach, Posterior Column, Open Approach (ICD-10-PCS; principal; 2017-12-04)
PROC: 0RT90ZZ Resection of Thoracic Vertebral Disc, Open Approach (ICD-10-PCS; principal; 2017-12-04)
PROC: 0QB20ZZ Excision of Right Pelvic Bone, Open Approach (ICD-10-PCS; principal; 2017-12-04)
DX: M51.14 Intervertebral disc disorders with radiculopathy, thoracic region (principal); M51.04 Intervertebral disc disorders with myelopathy, thoracic region; I87.2 Venous insufficiency (chronic) (peripheral); M81.0 Age-related osteoporosis without current pathological fracture; G47.33 Obstructive sleep apnea (adult) (pediatric); F41.9 Anxiety disorder, unspecified; Z98.1 Arthrodesis status; Z88.5 Allergy status to narcotic agent; Z88.0 Allergy status to penicillin; Z91.040 Latex allergy status
CPT/HCPCS: 2NBP; 72070; 87086; 93005; 93010; 97161-GP; C9399; J0690; J1100; J1170; J2405; J3250; J3490; J7120